=== PATIENT | male | born 1975 | race American Indian/Alaskan Native ===

== ENCOUNTER 2018-05-16 15:50 | Emergency (ER) | payer MEDICAID ==
[2018-05-16 15:50] VITALS: BMI 23.7
[2018-05-16] MEDS ORDERED: Tmp-Smz 800 mg-160 mg DS Tab ONE (16:39)
[2018-05-16] MEDS ORDERED: Tmp-Smz 800 mg-160 mg DS Tab PO STA (16:47)
[2018-05-16] MEDS ORDERED: Lidocaine 2% Inj (20ml) INFIL ONE (16:49)
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
[2018-05-16] MEDS ORDERED: Lidocaine 2% MPF (5 ml) Inj ONE (16:56)
[2018-05-16 17:49] VITALS: BP 135/83; PULSE 85; RESP 18; TEMP 98.1
[2018-05-16 22:47] VITALS: O2SAT 98
== END 2018-05-16 17:45 | disposition home or self-care (01) ==
LOC: C.ER 15:50
DX: L02.414 Cutaneous abscess of left upper limb (principal)

== ENCOUNTER 2018-05-18 17:43 | Emergency (ER) | payer MEDICAID ==
[2018-05-18 17:43] VITALS: BMI 23.7
[2018-05-18 17:49] VITALS: BP 120/74; PULSE 60; RESP 18; TEMP 98.1; O2SAT 100
--- NOTE | 2018-05-18 18:37 | C.PDOC ---
History Of Present Illness 43 y/o male presents to ED for packing removal after I&D 2 days ago to wrist wrist wound. Patient states he is compliant with antibiotics and denies fever, bleeding or any other complaints at this time. Time Seen by Provider: 05/18/18 18:24 Chief Complaint (Nursing): Abnormal Skin Integrity History Per: Patient History/Exam Limitations: no limitations Onset/Duration Of Symptoms: Days Current Symptoms Are (Timing): Still Present Past Medical History Reviewed: Historical Data, Nursing Documentation, Vital Signs Vital Signs: Last Vital Signs Temp 98.1 F 05/18/18 17:47 Pulse 60 05/18/18 17:47 Resp 18 05/18/18 17:47 BP 120/74 05/18/18 17:47 Pulse Ox 100 05/18/18 18:41 - Medical History PMH: Back Problems Surgical History: No Surg Hx Family History: States: No Known Family Hx - Social History Hx Alcohol Use: No Hx Substance Use: Yes - Immunization History Hx Tetanus Toxoid Vaccination: No Hx Influenza Vaccination: No Hx Pneumococcal Vaccination: No Review Of Systems Constitutional: Negative for: Fever, Chills Musculoskeletal: Positive for: Hand Pain Skin: Negative for: Rash Neurological: Negative for: Weakness, Numbness Physical Exam - Physical Exam Appears: Non-toxic, No Acute Distress Skin: Warm, Dry, No Rash, Other (left wrist incisional wound in place. No drainage or bleeding) Head: Atraumatic, Normacephalic Eye(s): bilateral: Normal Inspection Oral Mucosa: Moist Extremity: Normal ROM, Capillary Refill (<2 seconds) Pulses: Left Radial: Normal Neurological/Psych: Oriented x3, Normal Motor, Normal Sensation ED Course And Treatment O2 Sat by Pulse Oximetry: 100 (RA) Pulse Ox Interpretation: Normal Medical Decision Making Medical Decision Making: Wound packing removed. Wound irrigated with NS, no bleeding or drainage, new dressing applied Disposition Counseled Patient/Family Regarding: Diagnosis, Need For Followup - Disposition Disposition: HOME/ ROUTINE Disposition Time: 18:35 Condition: GOOD Additional Instructions: Continue and finish antibiotics prescribed to you Instructions: Wound Care (DC) Forms: [employer] (Bolivian) - POA Present On Arrival: None (packing remova) - Clinical Impression Clinical Impression: Encounter for abscess packing removal - PA / BUSINESS SERVICES ASSOCIATE / Resident Statement MD/DO has reviewed & agrees with the documentation as recorded. - Scribe Statement The provider has reviewed the documentation as recorded by the Jeredibino Walden All medical record entries made by the Jeredibino were at my direction and personally dictated by me. I have reviewed the chart and agree that the record accurately reflects my personal performance of the history, physical exam, medical decision making, and the department course for this patient. I have also personally directed, reviewed, and agree with the discharge instructions and disposition.
== END 2018-05-18 18:52 | disposition home or self-care (01) ==
LOC: C.ER 17:43
DX: Z48.00 Encounter for change or removal of nonsurgical wound dressing (principal)

== ENCOUNTER 2018-12-08 15:17 | Emergency (ER) | payer MEDICAID ==
[2018-12-08 15:18] VITALS: BMI 23.7
[2018-12-08 16:26] LABS: BASO # 0.1 K/uL (0.0-0.2); BASO % 0.9 % (0.0-2.0); EOS # 0.1 K/uL (0.0-0.7); EOS % 1.4 % (0.0-4.0); HEMOGLOBIN 15.2 g/dL (12.0-18.0); LYMPH # 1.3 K/uL (1.0-4.3); LYMPH % 15.3 % (20.0-40.0); MEAN CELL VOLUME 88.7 fL (80.0-94.0); MEAN CORPUSCULAR HEMOGLOBIN 29.5 pg (27.0-31.0); MEAN CORPUSCULAR HGB CONC 33.2 g/dL (33.0-37.0); MEAN PLATELET VOLUME 8.2 fL (7.2-11.7); MONO # 0.9 K/uL (0.0-0.8); MONO % 10.1 % (0.0-10.0); NEUT # 6.4 K/uL (1.8-7.0); NEUT % 72.3 % (50.0-75.0); RBC 5.16 Mil/uL (4.40-5.90); RED CELL DISTRIBUTION WIDTH 13.4 % (11.5-14.5); WHITE BLOOD COUNT 8.8 K/uL (4.8-10.8)
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
[2018-12-08 16:36] LABS: ALBUMIN 4.6 g/dL (3.5-5.0); ALT/SGPT 6 U/L (21-72); AST/SGOT 28 U/L (17-59); BLOOD UREA NITROGEN 15 mg/dL (9-20); CALCIUM 9.1 mg/dl (8.6-10.4); GFR NON-AFRICAN AMERICAN > 60
[2018-12-08 16:41] LABS: INR 1.2; PROTHROMBIN TIME 13.5 SECONDS (9.7-12.2)
--- NOTE | 2018-12-08 18:20 | RAD ---
Date of service: 12/08/2018 PROCEDURE: Radiographs of the left tibia and fibula. HISTORY: leg swelling and pain, COMPARISON: None available. TECHNIQUE: Frontal and lateral views obtained. FINDINGS: BONES: Oblique fracture at the junction of the middle and distal thirds of the tibia. Major fracture fragments are anatomically aligned. JOINT SPACES: Unremarkable. OTHER FINDINGS: Soft tissue swelling attests to the acuity of the fracture. IMPRESSION: Spiral fracture distal left tibia. No appreciable impaction, angulation or distraction.
[2018-12-08 19:36] LABS: SQUAMOUS EPITHIAL 3 /hpf (0-5); URINE BACTERIA MOD (<OCC); URINE BILIRUBIN 1+ (NEGATIVE); URINE BLOOD 1+ (NEGATIVE); URINE COLOR Amber (YELLOW); URINE GLUCOSE (UA) NORMAL (Normal); URINE LEUKOCYTE ESTERASE 2+ Leu/uL (Negative); URINE PROTEIN 2+ mg/dL (NEGATIVE)
[2018-12-08 19:40] LABS: URINE CLARITY SLIGHT-CLOUDY (Clear)
[2018-12-08 21:27] VITALS: BP 128/76; PULSE 77; RESP 16; TEMP 98.5; O2SAT 98
--- NOTE | 2018-12-09 12:12 | VASCLAB ---
Date of service: 12/08/2018 PROCEDURE: Left Lower Extremity Venous Duplex Exam. HISTORY: possible DVT, swelling and pain PRIORS: None. TECHNIQUE: Left common femoral, femoral, popliteal and posterior tibial, peroneal and great saphenous veins were evaluated. Flow was assessed with color Doppler, compressibility, assessment of phasic flow and augmentation response. Report prepared by JENA Soto, RVT FINDINGS: LEFT: 1. Common Femoral Vein: 1.1. Compressibility - Fully compressible: Thrombus - None : Flow - Phasic: Augmentation -Normal: Reflux - None. 2. Femoral Vein: 2.1. Compressibility - Fully compressible: Thrombus - None: Flow - Phasic: Augmentation -Normal: Reflux - None. 3. Popliteal Vein: 3.1. Compressibility - Fully compressible: Thrombus - None: Flow - Phasic: Augmentation -Normal: Reflux - None. 4. Posterior Tibial Vein: 4.1. Compressibility - Fully compressible: Thrombus - None: Flow - Phasic: Augmentation -Normal: Reflux - None. 5. Peroneal Vein: 5.1. Compressibility - Fully compressible: Thrombus - None: Flow - Phasic: Augmentation -Normal: Reflux - None. 6. Great Saphenous Vein: 6.1. Compressibility - Fully compressible: Thrombus - None: Flow - Phasic: Augmentation - Normal: Reflux - None. OTHER FINDINGS: IMPRESSION: No evidence of deep or superficial vein thrombosis of the left lower extremity with excellent venous flow. Normal valve function noted of the left side. Normal venous flow noted in the right common femoral vein.
== END 2018-12-08 21:05 | disposition home or self-care (01) ==
LOC: C.ER 15:17
DX: S82.302A Unspecified fracture of lower end of left tibia, initial encounter for closed fracture (principal); X58.XXXA Exposure to other specified factors, initial encounter; G82.20 Paraplegia, unspecified

== ENCOUNTER 2018-12-26 13:26 | Emergency (ER) | payer MEDICAID ==
[2018-12-26 13:26] VITALS: BMI 23.7
[2018-12-26 15:21] VITALS: BP 119/74; PULSE 51; RESP 16; TEMP 97.8; O2SAT 99
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
== END 2018-12-26 16:29 | disposition home or self-care (01) ==
LOC: C.ER 13:26
DX: S82.202A Unspecified fracture of shaft of left tibia, initial encounter for closed fracture (principal); X58.XXXA Exposure to other specified factors, initial encounter; G82.20 Paraplegia, unspecified

== ENCOUNTER 2018-12-29 11:44 | Emergency (ER) | payer MEDICAID ==
[2018-12-29 11:52] VITALS: BMI 22.3
[2018-12-29 11:55] VITALS: BP 139/79; PULSE 53; RESP 18; TEMP 98.6; O2SAT 97
--- NOTE | 2018-12-29 13:05 | C.PDOC ---
History Of Present Illness 43 year old male presents to ED with complaint left foot and lower leg pain and swelling since mid- November 2018. He was last seen in the ER on 12/08/18. Patient was diagnosed with left tibial spiral fracture. He was referred to orthopedics, but has difficulty obtaining an appointment because of his insurance. He denies any numbness or weakness. Time Seen by Provider: 12/29/18 11:55 Chief Complaint (Nursing): Lower Extremity Problem/Injury History Per: Patient History/Exam Limitations: no limitations Onset/Duration Of Symptoms: Other (1 month) Current Symptoms Are (Timing): Still Present Past Medical History Reviewed: Historical Data, Nursing Documentation, Vital Signs Vital Signs: Last Vital Signs Temp 98.6 F 12/29/18 11:52 Pulse 53 L 12/29/18 11:52 Resp 18 12/29/18 11:52 BP 139/79 12/29/18 11:52 Pulse Ox 97 12/29/18 11:52 - Medical History PMH: Back Problems Denies: Chronic Kidney Disease Surgical History: No Surg Hx Family History: States: Unknown Family Hx - Social History Hx Alcohol Use: No Hx Substance Use: Yes - Immunization History Hx Tetanus Toxoid Vaccination: No Hx Influenza Vaccination: No Hx Pneumococcal Vaccination: No Review Of Systems Constitutional: Negative for: Fever, Chills, Weakness Cardiovascular: Negative for: Chest Pain, Palpitations Respiratory: Negative for: Cough, Shortness of Breath Musculoskeletal: Positive for: Leg Pain (left lower ), Foot Pain (left) Skin: Negative for: Rash Neurological: Negative for: Weakness, Numbness, Dizziness Physical Exam - Physical Exam Appears: Well, Non-toxic, No Acute Distress Skin: Normal Color, Warm, Dry Head: Atraumatic, Normacephalic Neck: Normal ROM, Supple Chest: Symmetrical, No Deformity Extremity: Capillary Refill (<2 seconds), Swelling (Left foot mildly swollen), Other (thin, atrophic calves) Pulses: Left Radial: Normal, Right Radial: Normal, Left Dorsalis Pedis: Normal, Right Dorsalis Pedis: Normal Neurological/Psych: Oriented x3, Normal Speech, Normal Cognition Gait: Other (wheel chair bound, parapalegic) ED Course And Treatment O2 Sat by Pulse Oximetry: 97 (RA) Progress Note: Called Dr. Quan's office, scheduled appt for patient WednesdayJan 03 at 1 pm. Re-did splint for patient. Upon reassessment, patient is resting comfortably, in no distress, and is stable for discharge. Patient is advised to maintain appointment with Dr. Quan. Patient is advised to return to ED if symptoms persist or worsen. Disposition Counseled Patient/Family Regarding: Diagnosis, Need For Followup - Disposition Referrals: Meet Quan III, MD [Staff Provider] - Disposition: HOME/ ROUTINE Disposition Time: 13:05 Condition: STABLE Additional Instructions: FOLLOW UP WITH DR QUAN IN THE OFFICE WednesdayJAN 03 AT 1PM RETURN TO ER IF YOU HAVE ANY CONCERNING SYMPTOMS Instructions: Tibia Fracture Forms: [employer] (Kiswahili) Print Language: SPANISH - Clinical Impression Clinical Impression: Spiral fracture of shaft of tibia - Scribe Statement The provider has reviewed the documentation as recorded by the Scribe (Marika Arambula) All medical record entries made by the Scribe were at my direction and personally dictated by me. I have reviewed the chart and agree that the record accurately reflects my personal performance of the history, physical exam, medical decision making, and the department course for this patient. I have also personally directed, reviewed, and agree with the discharge instructions and disposition.
== END 2018-12-29 13:14 | disposition home or self-care (01) ==
LOC: C.ER 11:44
DX: S82.24 Spiral fracture of shaft of tibia (principal); X58.XXXD Exposure to other specified factors, subsequent encounter